=== PATIENT | female | born 2000 | race Hispanic/Latino ===

== ENCOUNTER 2024-09-29 06:32 | Day surgery (SDC) | payer BC ==
[2024-09-29 07:33] VITALS: BMI 43.8
[2024-09-29] MEDS ORDERED: hydrALAZINE 20 MG/ML VIAL SLOW IVP PRN (07:38)
[2024-09-29] MEDS: Acetaminophen 500 MG TAB PO SCH (10:13)
[2024-09-29 11:22] LABS: Glucose, Urine (Dipstick) Normal (Negative); Leukocyte Negative (Negative); Protein, Urine (Dipstick) Negative (Neg-Trace); Specific Gravity, Urine 1.005 (1.005-1.030)
[2024-09-29 11:46] LABS: Bacteria/HPF Rare-Few HPF (None Seen); CAUTI Indications for Culture Pregnancy; RBC/HPF 0-3 HPF (0-3); WBC/HPF 0-3 HPF (0-3)
[2024-09-29 11:48] LABS: Urine Culture Reflex Yes Yes
== END 2024-09-29 11:17 | disposition home or self-care (01) ==
LOC: CSHLD/OP 06:32
PROVIDERS: ATTEND Family Medicine
DX: O47.03 False labor before 37 completed weeks of gestation, third trimester (principal); Z3A.36 36 weeks gestation of pregnancy; Z14.8 Genetic carrier of other disease
CPT/HCPCS: 81001; 87086; 99284